=== PATIENT | male | born 1960 | race Caucasian/White ===

== ENCOUNTER 2023-05-20 05:21 | Observation (INO) | payer BC ==
[2023-05-13 15:01] LABS: BASOPHILS % (AUTO) 0.7 % (0-1); EOSINOPHILS # (AUTO) 0.2 X10'3 (0-0.9); EOSINOPHILS % (AUTO) 3.3 % (0-6); LYMPHOCYTES # (AUTO) 1.8 X10'3 (1.1-4.8); LYMPHOCYTES % (AUTO) 32.2 % (21-51); MEAN CORPUSCULAR HEMOGLOBIN 31.5 PG (27.0-31.0); MEAN CORPUSCULAR HGB CONC 33.8 g/dL (33.0-36.5); MEAN CORPUSCULAR VOLUME 93.2 FL (78-98); MEAN PLATELET VOLUME 8.9 FL (7.4-10.4); MONOCYTES # (AUTO) 0.5 X10'3 (0-0.9); MONOCYTES % (AUTO) 8.3 % (2-12); NEUTROPHILS # (AUTO) 3.1 X10'3 (1.8-7.7); NEUTROPHILS % (AUTO) 55.5 % (42-75); PRE OP HEMATOCRIT 45.2 % (42.0-52.0); PRE OP HEMOGLOBIN 15.3 g/dL (14.0-17.9); PRE OP PLATELET COUNT 176 X10'3 (140-440); PRE OP WHITE BLOOD COUNT 5.5 10'3 (4.8-10.8); RED BLOOD COUNT 4.85 X10'6 (4.70-6.10); RED CELL DISTRIBUTION WIDTH 14.4 % (11.5-14.5)
[2023-05-13 15:14] LABS: CHLORIDE 105 MMOL/L (99-107); PRE OP GLUCOSE 91 MG/DL (70-104); PRE OP POTASSIUM 3.9 MMOL/L (3.4-5.1); PRE OP SODIUM 142 MMOL/L (135-145); TOTAL CARBON DIOXIDE 29.4 MMOL/L (24-32)
[2023-05-13 15:15] LABS: ALBUMIN 3.9 G/DL (3.4-5.0); ALBUMIN/GLOBULIN RATIO 1.1 (1.1-1.5); ALKALINE PHOSPHATASE 87 IU/L (46-116); BLOOD UREA NITROGEN 15 MG/DL (7-18); BUN/CREATININE RATIO 15.3 (10.0-20.0); CALCIUM 8.9 MG/DL (8.5-10.1); CREATININE 0.98 MG/DL (0.60-1.10); PRE OP ALT 33 U/L (30-65); PRE OP ANION GAP 8 (8-16); PRE OP AST 18 U/L (10-37); PRE OP BILIRUB, TOTAL 0.5 MG/DL (0.0-1.0); TOTAL PROTEIN 7.3 G/DL (6.4-8.2); eGFR 78 ML/MIN
[~2023-05-20] VITALS: Ht 185.4 cm; Wt 114.5 kg
[2023-05-20] VITALS (22 sets, daily range): BP systolic 127–172; BP diastolic 74–105; PULSE 56–96; RESP 12–27; TEMP 97.5; O2SAT 95–99
[~2023-05-20 05:21] MED LIST: ASCO100031 PO; CHOL500044 PO
[2023-05-20] MEDS: famotidine 20mg tablet PO ONE (06:20)
[2023-05-20] MEDS: ringers solution, lacted 1,000 ML IV SCH ×2 (06:21→11:06)
[2023-05-20] MEDS ORDERED: BUPIVAcaine/PF 2.5mg/ml (0.25%) 10ml vial ONE (06:55)
[2023-05-20] MEDS ORDERED: BUPIVACAINE liposomal/PF 13.3 MG/ML vial IM ONE (06:55)
[2023-05-20] MEDS ORDERED: MIDAZolam 1 MG/ML 5ML VIAL ONE (07:32)
[2023-05-20] MEDS ORDERED: fentaNYL /PF 50mcg/ml 5ml ampule ONE (07:32)
[2023-05-20] MEDS ORDERED: propofol inj 20 ML IV ONE (07:33)
[2023-05-20] MEDS ORDERED: rocuronium 10mg/ml inj IV ONE ×2 (07:33→07:42)
[2023-05-20] MEDS ORDERED: ondansetron/PF 4mg/2ml inj IV PRN ×2 (07:40→10:55)
[2023-05-20] MEDS ORDERED: labetalol 20mg/4ml (5mg/ml) syringe IV PRN (07:40)
[2023-05-20] MEDS ORDERED: HYDROmorphone/PF 0.2 MG/ML SYRINGE IV PRN ×2 (07:40)
[2023-05-20] MEDS ORDERED: meperidine/PF 25mg/ml syringe IV PRN ×2 (07:40)
[2023-05-20] MEDS ORDERED: sevoflurane 250ml liquid IH ONE (07:42)
[2023-05-20] MEDS ORDERED: LIDOcaine 2% (20mg/ml) 5ml vial ONE (07:42)
[2023-05-20] MEDS: LIDOcaine 1% 30ml preserv. free vial ONE (09:00)
[2023-05-20] MEDS: BUPIVAcaine 2.5mg/ml inj 50ml vial (contains preservative) ONE (09:00)
[2023-05-20] MEDS ORDERED: dexamethasone sod phosphate 4mg/ml inj. ONE (10:27)
[2023-05-20] MEDS ORDERED: ondansetron/PF 4mg/2ml inj ONE (10:27)
[2023-05-20] MEDS ORDERED: glycopyrrolate 0.2mg/ml inj ONE (10:28)
[2023-05-20] MEDS ORDERED: neostigmine methylsulfate 1 MG/ML 10ml vial ONE (10:28)
[2023-05-20] MEDS ORDERED: naloxone 0.4 mg/ml inj IV PRN (10:55)
[2023-05-20] MEDS: cefazolin 2gm/D5W 100mL 100 ML IV ONE (11:05)
[2023-05-20] MEDS: acetaminophen 1,000mg/100ml IV 100 ML IV ONE (11:07)
[2023-05-20] MEDS: oxyCODONE/APAP 5-325mg tablet PO PRN (12:40)
[2023-05-21] MEDS ORDERED: enoxaparin 40mg/0.4ml syringe SQ SCH (08:00)
== END 2023-05-20 14:31 | disposition home or self-care (01) ==
LOC: PAS 05:21 → PACU 10:56
PROVIDERS: ADMIT Surgery; ATTEND Surgery
DX: K44.9 Diaphragmatic hernia without obstruction or gangrene (principal); K21.9 Gastro-esophageal reflux disease without esophagitis; I10 Essential (primary) hypertension; E66.9 Obesity, unspecified; Z79.899 Other long term (current) drug therapy
CPT/HCPCS: 36415; 43282; 71045; 80053; 82948; 85025; 93005; 96374; C1781; G0378; J0131; J0690; J1100; J2250; J2405; J2704; J2710; J3010; J3490; J7120; S2900; A4618; C9290